=== PATIENT | male | born 1985 | race Caucasian/White ===

== ENCOUNTER 2018-09-28 14:06 | Emergency (ER) | payer SELFPAY ==
--- NOTE | 2018-09-28 14:07 | ED_ITS ---
HPI - URI/Sore Throat <JAMES Manzanares - Last Filed: 09/28/18 21:47> General Chief Complaint: Upper Respiratory Symptoms Stated Complaint: Sinus infection Time Seen by Provider: 09/28/18 14:06 Source: patient Mode of arrival: ambulatory Limitations: no limitations History of Present Illness HPI Narrative: 33-year-old healthy male that is an everyday smoker here for complaint of a sinus pressure pain and drainage over the past week he now reports that he has had bilateral ear pain over the past couple of days. He states that he had cold-like symptoms in the beginning and then the sinus pressure has worsened over the past week. He states he has had chills. No known fevers. He states he has had purulent nasal discharge. He has painful sinus areas. Positive p.o. intake. Related Data Previous Rx's Medication Instructions Recorded amoxicillin-pot clavulanate 1 tab PO BID #14 tab 09/28/18 [Augmentin] Allergies Allergy/AdvReac Type Severity Reaction Status Date / Time No Known Drug Allergies Allergy Verified 09/28/18 14:15 Review of Systems <JAMES Manzanares - Last Filed: 09/28/18 21:47> Constitutional Denies chills, Denies fever(s), Denies lethargy and Denies weakness Eyes Denies change in vision, Denies eye discharge, Denies irritation and Denies loss of vision ENT Ears, Nose, Mouth, and Throat: Reports otalgia, Reports sinus pain and Reports sinus pressure Cardiovascular Denies chest pain, Denies irregular heart rhythm, Denies lightheadedness, Denies palpitations, Denies dyspnea, Denies dyspnea on exertion and Denies orthopnea Respiratory Denies cough, Denies dyspnea, Denies dyspnea on exertion and Denies wheezing Gastrointestinal Gastrointestinal: Denies abdominal pain, Denies change in bowel habits, Denies diarrhea, Denies nausea and Denies vomiting Genitourinary Denies hematuria, Denies flank pain, Denies urinary incontinence and Denies urinary urgency Musculoskeletal Denies back pain, Denies muscle weakness, Denies numbness and Denies tingling Integumentary/Breasts Denies pruritus, Denies erythema, Denies rash and Denies wounds Neurologic Denies confusion, Denies loss of vision, Denies numbness, Denies tingling and Denies weakness Psychiatric Denies anxiety, Denies confusion, Denies depression, Denies homicidal ideation and Denies suicidal ideation Endocrine Denies palpitations Hematologic/Lymphatic Denies easy bruising Allergic/Immunologic Denies wheezing Exam <JAMES Manzanares - Last Filed: 09/28/18 21:47> Initial Vital Signs Initial Vital Signs: Vital Signs Temperature 98.2 F 09/28/18 14:10 Pulse Rate 99 H 09/28/18 14:10 Respiratory Rate 20 09/28/18 14:10 Blood Pressure 142/84 H 09/28/18 14:10 Pulse Oximetry 97 09/28/18 14:10 Const General: cooperative and well developed Nutritional Appearance: well nourished Orientation: alert, awake, oriented x3 and not confused HENMT Ears: TM abnormal (Bilateral tympanic membranes erythematous and bulging) bulging and erythematous Face and sinus: sinus tenderness Mouth: oral mucosae normal, oropharynx normal and moist mucous membranes Eyes Conjunctivae: conjunctivae normal Sclera: sclerae normal Pupils: PERRL EOM: EOM intact bilaterally Resp Effort & Inspection: normal respiratory effort, able to speak in complete sentences, no respiratory distress and no use of accessory muscles Auscultation: clear to auscultation bilaterally, no rales, no rhonchi and no wheezes Cardio Rate: regular rate Rhythm: regular rhythm Heart Sounds: no click, no gallops, no murmurs and no rubs Skin General: no rashes or lesions noted, No jaundice and No petechiae Neuro General: alert, oriented x3, gait normal and no focal motor deficits Speech: speech normal <Lynne Snow DO - Last Filed: 10/01/18 07:19> Initial Vital Signs Initial Vital Signs: Vital Signs Temperature 98.2 F 09/28/18 14:10 Pulse Rate 99 H 09/28/18 14:10 Respiratory Rate 20 09/28/18 14:10 Blood Pressure 142/84 H 09/28/18 14:10 Pulse Oximetry 97 09/28/18 14:10 Course <JAMES Manzanares - Last Filed: 09/28/18 21:47> Vital Signs - 8 hr 09/28/18 14:10 Temperature 98.2 F Pulse Rate 99 H Respiratory Rate 20 Blood Pressure 142/84 H Pulse Oximetry 97 <Lynne Snow DO - Last Filed: 10/01/18 07:19> Vital Signs - 8 hr 09/28/18 14:10 Temperature 98.2 F Pulse Rate 99 H Respiratory Rate 20 Blood Pressure 142/84 H Pulse Oximetry 97 MDM - URI/Sore Throat <JAMES Manzanares - Last Filed: 09/28/18 21:47> [facility] Narrative Medical decision making narrative: Signs is symptoms present as viral upper respiratory infection with secondary bilateral otitis media and sinusitis. He is placed on Augmentin. Saline irrigation and nasal passages to help with nasal congestion. [id number] guaifenesin to help thin secretions. Plenty of fluids and rest. Hot showers to help with congestion as well. Over- the-counter Tylenol or Motrin as needed for any discomfort follow up with primary care provider later this week for re-evaluation. Discharge Plan Departure Patient Disposition: Home Clinical Impression: Upper respiratory infection, Otitis media, Sinusitis Discharge Date/Time: 09/28/18 14:38 Interventions: ED Discharge Assessment Last Done: 09/28/18 14:37 Instructions: Middle Ear Infection, DI for Sinusitis Activity Restrictions/Additional Instructions: Signs is symptoms present as viral upper respiratory infection with secondary bilateral otitis media and sinusitis. You are placed on antibiotic Augmentin use as directed. Saline irrigation and nasal passages to help with nasal congestion. [id number]-gvr-wxhtvdy guaifenesin to help thin secretions. Plenty of fluids and rest. Hot showers to help with congestion as well. [id number] Tylenol or Motrin as needed for any discomfort. follow up with primary care provider later this week for re-evaluation. Prescriptions: New amoxicillin-pot clavulanate [Augmentin] 875-125 mg tablet 1 tab PO BID Qty: 14 RF: 0 Referrals: [facility] [Provider Group] <Lynne Snow DO - Last Filed: 10/01/18 07:19> Cosign ED Attending Rubio Attestation: I was immediately available in the department for consultation. Documentation has been reviewed. I agree with assessment and plan.
[2018-09-28 14:10] VITALS: BP 142/84; PULSE 99; RESP 20; TEMP 36.8; O2SAT 97
== END 2018-09-28 14:38 | disposition home or self-care (01) ==
PROVIDERS: Emergency Provider Nurse Practitioner Family
DX: J06.9 Acute upper respiratory infection, unspecified (principal); H66.90 Otitis media, unspecified, unspecified ear; J32.9 Chronic sinusitis, unspecified
CPT/HCPCS: 99282